=== PATIENT | female | born 1955 | race Caucasian/White ===

== ENCOUNTER → 2021-02-27 | Outpatient (CLI) | payer MEDICARE ==
[2016-01-16 08:21] VITALS: BP 118/81
[~2021-02-27] MED LIST: OLME20TA17 PO; biest PO
--- NOTE | 2021-02-27 10:28 | RAD ---
INDICATION: Reason: NAUSEA, VOMITING / Spl. Instructions: / History: COMPARISON: December 2020. TECHNIQUE: 5mCi of Tc99m Choletec was injected intravenously followed by scintigraphic images of the abdomen. 8 ounces of ensure was administered orally and a gallbladder ejection fraction was calculated. FINDINGS: Appropriate radiotracer clearance from the blood pool. Appropriate radiotracer excretion into the biliary tree. Prompt passage of contrast into the small bowel. Visualization of the gallbladder prior to the 60 minute time point. Gallbladder ejection fraction is 52 percent. IMPRESSION: * No scintigraphic evidence of acute cholecystitis or high grade biliary obstruction. * No evidence of biliary dyskinesia. Electronically signed by: Howard Khan MD (02/27/2021 10:26 AM) [id number]
== END ==
LOC: NM 09:20
PROVIDERS: ATTEND Internal Medicine Gastroenterology
DX: R11.2 Nausea with vomiting, unspecified (principal)
CPT/HCPCS: 78227; A9537